=== PATIENT | male | born 1985 | race Caucasian/White ===

== ENCOUNTER 2023-12-22 15:35 | Outpatient (CLI) | payer BC | END 2023-12-22 15:36 | disposition home or self-care (01) | LOC: ULT 15:35 | PROVIDERS: ATTEND Physician Assistant Medical | DX: R74.01 Elevation of levels of liver transaminase levels (principal); E83.19 Other disorders of iron metabolism; K76.0 Fatty (change of) liver, not elsewhere classified | CPT/HCPCS: 76705 ==